=== PATIENT | female | born 1980 | race Caucasian/White ===

== ENCOUNTER 2019-12-25 22:04 | Observation (INO) | payer OTHER, SELFPAY ==
[2019-12-25 22:10] VITALS: BP 121/66; PULSE 94; RESP 18; TEMP 38.2; O2SAT 99
[2019-12-25 23:01] LABS: Basophils Percent Auto 0.3 % (0.2-1.2); Eosinophils Absolute Auto 0.1 K/mm3 (0-0.3); Eosinophils Percent Auto 0.9 % (0-4.4); Hematocrit 45.2 % (37.0-47.0); Hemoglobin 15.4 g/dL (12.0-15.0); Immature Granulocyte Absolute 0.04 K/mm3 (0.00-0.031); Immature Granulocyte Percent A 0.3 % (0-0.5); Immature Platelet Fraction Pct 6.3 % (0.9-11.2); Lymphocytes Absolute Auto 1.14 K/mm3 (0.9-3.2); Lymphocytes Percent Auto 8.2 % (18.3-44.2); Mean Corpuscular HGB Conc 34.1 g/dl (32-36); Mean Corpuscular Hemoglobin 30.4 pg (26-34); Mean Corpuscular Volume 89.3 fl (80-100); Mean Platelet Volume 10.5 fl (7.4-10.4); Monocytes Absolute Auto 0.9 K/mm3 (0.1-0.6); Monocytes Percent Auto 6.7 % (2.6-8.5); Neutrophils Absolute Auto 11.6 K/mm3 (1.3-6.7); Neutrophils Percent Auto 83.6 % (45.5-73.1); Platelet Count Result 139 k/mm3 (150-375); Red Blood Count 5.06 M/mm3 (4.2-5.4); Red Cell Distribution Width 12.1 % (11.5-14.5); White Blood Count 13.9 K/mm3 (4.5-10.0)
[2019-12-25 23:12] LABS: Anion Gap 12 mmol/L (8-16); Blood Urea Nitrogen 15 mg/dL (7-17); Calcium 9.5 mg/dL (8.4-10.2); Carbon Dioxide 26 mmol/L (22-30); Chloride 101 mmol/L (98-107); Estimated CRCL calculation 79 ml/min; Estimated Glomerular Filt Rate > 60; Glucose 98 mg/dL (65-105); Potassium 3.7 mmol/L (3.4-5.0); Sodium 139 mmol/L (137-145)
[2019-12-26] MEDS: ceFAZolin 2 GM/D5W 50 ML 2 GM/50 ML BAG IVPB (01:03)
[2019-12-26 01:39] LABS: CRP 1.8 mg/dL (<1.0)
--- NOTE | 2019-12-26 01:44 | ED.SKABFB ---
HPI - Skin/Abscess/Foreign Bdy General Chief complaint: Skin/Abscess/Foreign Body Stated complaint: infected blister Time Seen by Provider: 12/26/19 00:28 Source: patient Mode of arrival: ambulatory Limitations: no limitations History of Present Illness HPI narrative: This patient is a 39 year old female who presents for evaluation an infected blister. She reports she noticed what appeared to be poison diego to her right wrist 4 days ago. She later noticed increased swelling to a blister on his rightt wrist. Yesterday, she noticed red spots to right forearm, and throughout the day she has developed redness up the arm. She has pain to her right arm pain. She had a fever on arrival to ER. She reports nausea and she had one episode of emesis when she was squeezing her wound. She denies history of previous skin infections. Related Data Home Medications Medication Instructions Recorded Confirmed No Home Medications 12/25/19 12/25/19 Allergies Allergy/AdvReac Type Severity Reaction Status Date / Time No Known Allergies Allergy Verified 12/26/19 05:12 Review of Systems Review of Systems: All systems reviewed & are unremarkable except as noted in HPI and below PMFSH Past Medical History Medical History Patient denies medical problems Surgical History Surgical History H/O section Family History Family History (Updated 12/26/19 @ 04:57 by Madalyn James RN) Other Patient denies significant medical history Social History Social History Smoking status: Never smoker Alcohol intake: never Substance use: never Gender identity (if verbalized by the patient): Female Spiritual care concerns: No Exam Const: General: no acute distress and alert Orientation/consciousness: patient oriented x3 HENMT: Head: atraumatic Face and sinus: face symmetric Mouth: Yes Normal oral and palatal mucosa present, Yes lip normal, Yes oropharynx normal and Yes moist mucous membranes Eyes: EOM: EOMs intact bilaterally Resp: Effort & Inspection: normal respiratory effort and no retractions Auscultation: clear to auscultation bilaterally Cardio: Rate: regular rate Rhythm: regular rhythm Heart sounds: no murmurs Skin: Other: 3 cm ecchymotic blister with surround erythema with ertyhematous streaking starting volar right wrist going up to axilla, she has lymphadenopathy in her right axilla Neuro: General: patient oriented x3 and moves all extremities Extrem: General: no pedal edema Psych: Mental Status: mental status grossly normal Affect: normal affect Course Consultations Consultation #1: I spoke with Dr. Fischer about patient and management. He accepts to the medical floor. Date: 12/26/19 Time: 01:53 Vital Signs Vital signs: Vital Signs Temperature 100.8 F H 12/25/19 22:10 Pulse Rate 94 12/25/19 22:10 Respiratory Rate 18 12/25/19 22:10 Blood Pressure 121/66 12/25/19 22:10 Pulse Oximetry 99 12/25/19 22:10 Temperature 98.2 F 12/26/19 06:00 Pulse Rate 75 12/26/19 06:00 Respiratory Rate 21 H 12/26/19 06:00 Blood Pressure 101/62 12/26/19 06:00 Pulse Oximetry 100 12/26/19 06:00 MDM - Skin/Abscess/Foreign Bdy Lab Data Result diagrams: 12/25/19 22:26 12/25/19 22:26 Labs: Lab Results 12/25/19 12/25/19 12/25/19 Range/Units 22:26 22:26 22:26 WBC 13.9 H (4.5-10.0) K/mm3 RBC 5.06 (4.2-5.4) M/mm3 Hgb 15.4 H (12.0-15.0) g/dL Hct 45.2 (37.0-47.0) % MCV 89.3 (80-100) fl MCH 30.4 (26-34) pg MCHC 34.1 (32-36) g/dl RDW 12.1 (11.5-14.5) % Plt Count 139 L (150-375) k/mm3 MPV 10.5 H (7.4-10.4) fl Immature Gran % (Auto) 0.3 (0-0.5) % Neut % (Auto) 83.6 H (45.5-73.1) % Lymph % (Auto) 8.2 L (18.3-44.2) %
--- NOTE | 2019-12-26 02:27 | PM.IMHP ---
H&P: HPI History of Present Illness Date/Time: 12/26/19 02:27 Chief complaint: right arm cellulitis with lympangitis Narrative: This is a 39 year old female who is known to normally be healthy and doesn't take any home medications presented to the hospital with a complaint of an infected blister on her right wrist. She believes that she got poison diego as this started out as a rash on her right wrist that become a blister yesterday. She described it as very itchy. She started to notice redness creeping up her right forearm and she had a telemedicine appointment and was prescribed Augmentin which she took one tablet. She was told to come to the hospital if the redness worsened and yesterday evening she noticed the redness had gone all the way up her arm into her armpit. Associated symptoms include nausea and fever. She denies any chest pain, cough, sore throat, headache, abdominal pain, dysuria, hematuria, diarrhea or rectal bleeding. She denies any other open wounds. In the ER tonight the patient was found to have a fever of 100.8 F. She was started on Ancef IV and we have been asked to admit her to the hosptial for further care. Review of Systems Review of Systems: All systems reviewed & are unremarkable except as noted in HPI and below PMFSH Past Medical History Medical History Patient denies medical problems Surgical History Surgical History H/O section Family History Family History Other Patient denies significant medical history Social History Social History Smoking status: Never smoker Alcohol intake: never Substance use: never Gender identity (if verbalized by the patient): Female Spiritual care concerns: No Meds Home Medications and Allergies Home Medications Medication Instructions Recorded Confirmed Type No Home Medications 12/25/19 12/25/19 History Allergies Allergy/AdvReac Type Severity Reaction Status Date / Time No Known Allergies Allergy Verified 12/26/19 05:12 Vital Signs Vital Signs - 24 hr 12/25/19 22:10 Temperature 38.2 C H Pulse Rate 94 Respiratory Rate 18 Blood Pressure 121/66 Pulse Oximetry 99 Exam Const: General: cooperative, no acute distress, alert, awake and ill appearing acutely Nutritional Appearance: well nourished Orientation/consciousness: patient oriented x3 HENMT: Head: normal to inspection General nose exam: Normal external nose present Face and sinus: normal facial exam Mouth: Yes Normal oral and palatal mucosa present and Yes oropharynx normal Eyes: Pupils: Equal, round and reactive pupils present EOM: EOMs intact bilaterally Neck: Neck: supple and no JVD Thyroid: thyroid normal Lymphatic: lymphadenopathy (Right axilla++ ) Resp: Effort & Inspection: normal respiratory effort Auscultation: clear to auscultation bilaterally Cardio: Rate: regular rate Rhythm: regular rhythm Heart sounds: no murmurs GI: Inspection: normal to inspection Auscultation: normal bowel sounds Skin: General skin exam: erythema (Streaking erythema going up right arm to the axilla++ ) Lesions: other (open blister on right wrist++ ) Neuro: General: patient oriented x3 Cranial nerves: Yes CN's II-XII intact bilaterally and Yes Equal, round and reactive pupils present Speech: normal speech Motor exam (neuro): 5/5 motor strength present throughout Sensory Exam: normal sensation Extrem: General: normal to inspection and no edema Psych: Mental Status: mental status grossly normal Affect: normal affect H&P: Results Labs Labs: Short CBC 12/25/19 Range/Units 22:26 WBC 13.9 H (4.5-10.0) K/mm3 Hgb 15.4 H (12.0-15.0) g/dL Hct 45.2 (37.0-47.0) % Plt Count 139 L (150-375) k/mm3 [facility] 12/25/19 22:26
[2019-12-26] MEDS: HYDROcodone/acetaminophen (*CRX) 5-325 MG TABLET 1 TAB PO (02:53)
[2019-12-26 04:39] VITALS: BP 97/62; PULSE 73; RESP 18; O2SAT 100
--- NOTE | 2019-12-26 04:55 | ADMGEN ---
This patient, Tameka Valladares, was admitted to 2 Medical Room 261-01. Patient/family oriented to hospital policies and general routines including ID bracelet, bed and alarms, visiting hours, pain management, procedures, bathroom and other care routines, personal items, smoking policy, room service/diet, and visiting hours. Information on how to activate the Rapid Response Team has been discussed. Patient/Family are encouraged to report perceived risks to care and to ask questions if they do not understand what they are told or what they should do.
[2019-12-26 06:00] VITALS: BP 101/62; PULSE 75; RESP 21; TEMP 36.8; O2SAT 100; BMI 25.4
--- NOTE | 2019-12-26 12:41 | PM.IMPN ---
Progress Note: A&P Assessment and Plan (1) Cellulitis: Qualifiers: Laterality: right Site of cellulitis: extremity Site of cellulitis of extremity: upper extremity Qualified Code(s): L03.113 - Cellulitis of right upper limb Code(s): L03.90 - Cellulitis, unspecified Status: Acute Assessment and Plan: Admit for observation, Continue IV Ancef. blood / urine/ wound cultures are pending. IV hydration, antiemetics and pain control as needed. last fever was yesterday evening at 38.2, she does not feel like her redness has improved at this time. will keep her another night, pending culture results and improvement of redness and itching. Ordered calamine and bacitracin to be applied Started her on Claritin and Benadryl. (2) Sepsis: Qualifiers: Sepsis acute organ dysfunction status: without acute organ dysfunction Sepsis type: sepsis due to unspecified organism Qualified Code(s): A41.9 - Sepsis, unspecified organism Code(s): A41.9 - Sepsis, unspecified organism Status: Acute Assessment and Plan: Source of sepsis appears to be cellulitis. Continue IV antibiotics and IV fluids. Encourage oral hydration too Monitor vital signs and urine output. intake/output Monitor acid-base status. (3) Leukocytosis: Qualifiers: Leukocytosis type: unspecified Qualified Code(s): D72.829 - Elevated white blood cell count, unspecified Code(s): D72.829 - Elevated white blood cell count, unspecified Status: Acute Assessment and Plan: secondary to cellulitis. WBC increased at 13.9 last night, repeating in morning fever improving from 38.2 to 36.8 C Monitor CBCs and fevers. (4) Thrombocytopenia: Code(s): D69.6 - Thrombocytopenia, unspecified Status: Acute Assessment and Plan: likely reactive. in 2018 plts 167 Plts 139 last kier drier platelets and fevers. Additional Plan Date of service was 12/26/2019 at 02:15 hrs. Subjective Date/time seen: 12/26/19 12:41 Patient continues to have pain and itching to her right inner wrist wound, currently no drainage from the site. She continues to have red streaking upper inner arm to her elbow, and complains of a enlarged lymph node on her right armpit. Her blood / urine/ wound cultures are pending. Her last fever was yesterday evening at 38.2, she does not feel like her redness has improved at this time. We will keep her another night, pending culture results and improvement of redness and itching. Ordered calamine and bacitracin to be applied today. Started her on Claritin and Benadryl. Encouraged nursing staff to provide and encourage patient to increase her oral hydration. Continue her IV Ancef at this time. Review of Systems Review of Systems: All systems reviewed & are unremarkable except as noted in HPI and below Constitutional: Constitutional: Denies chills, Denies excessive sweating, Reports fever(s), Denies headache(s), Denies increased appetite, Denies snoring and Denies weight gain Eyes: Eyes: Reports as per HPI, Denies exophthalmos, Denies diplopia, Denies floaters and Denies loss of peripheral vision ENT: Denies facial pain, Denies headache(s), Denies hoarseness, Denies odynophagia and Denies tinnitus Cardiovascular: Cardiovascular: Reports as per HPI, Denies chest pain, Denies chest pain at rest, Denies chest pain with activity, Denies rapid heart rate, Denies pedal edema, Denies edema and Denies leg ulcers Respiratory: Respiratory: Reports as per HPI, Denies chest congestion, Denies cough, Denies pain on inspiration, Denies pain with cough and Denies snoring Gastrointestinal: Gastrointestinal: Reports as per HPI, Denies abdominal pain and Denies odynophagia Genitourinary: Genitourinary: Reports as per HPI Musculoskeletal: Musculoskeletal: Reports as per HPI Integumentary/Breasts: Skin/Breast: Reports as per HPI, Reports furuncle, Reports pruritus, Report
[2019-12-26] MEDS: LORATADINE 10 MG TABLET PO (13:21)
[2019-12-26] MEDS: diphenhydrAMINE HCl CAP 25 MG CAPSULE PO (13:21)
[2019-12-26 14:00] VITALS: BP 118/71; PULSE 76; RESP 17; TEMP 36.4; O2SAT 100
[2019-12-26] MEDS: BACITRACIN/POLYMYXIN B OINT 15 GM TUBE 1 APPLIC TOPICAL (16:44)
[2019-12-26] MEDS: CALAMINE LOTION 120 ML BOTTLE 1 APPLIC TOPICAL (16:44)
[2019-12-26 22:00] VITALS: BP 107/70; PULSE 80; RESP 16; TEMP 36.6; O2SAT 98
[2019-12-27 05:33] LABS: Basophils Percent Auto 0.3 % (0.2-1.2); Eosinophils Absolute Auto 0.4 K/mm3 (0-0.3); Eosinophils Percent Auto 5.8 % (0-4.4); Hematocrit 42.8 % (37.0-47.0); Hemoglobin 14.3 g/dL (12.0-15.0); Immature Granulocyte Absolute 0.02 K/mm3 (0.00-0.031); Immature Granulocyte Percent A 0.3 % (0-0.5); Lymphocytes Absolute Auto 1.92 K/mm3 (0.9-3.2); Lymphocytes Percent Auto 27.9 % (18.3-44.2); Mean Corpuscular HGB Conc 33.4 g/dl (32-36); Mean Corpuscular Volume 89.7 fl (80-100); Mean Platelet Volume 9.5 fl (7.4-10.4); Monocytes Absolute Auto 0.6 K/mm3 (0.1-0.6); Monocytes Percent Auto 9.3 % (2.6-8.5); Neutrophils Absolute Auto 3.9 K/mm3 (1.3-6.7); Neutrophils Percent Auto 56.4 % (45.5-73.1); Platelet Count Result 156 k/mm3 (150-375); Red Blood Count 4.77 M/mm3 (4.2-5.4); Red Cell Distribution Width 11.9 % (11.5-14.5); White Blood Count 6.9 K/mm3 (4.5-10.0)
[2019-12-27 05:47] LABS: Alanine Aminotransferase 22 U/L (4-35); Albumin Level 3.7 g/dL (3.5-5.1); Alkaline Phosphatase 68 U/L (38-126); Anion Gap 9 mmol/L (8-16); Aspartate Amino Transferase 25 U/L (14-36); Bilirubin,Total 0.5 mg/dL (0.2-1.3); Blood Urea Nitrogen 11 mg/dL (7-17); Calcium 8.6 mg/dL (8.4-10.2); Carbon Dioxide 25 mmol/L (22-30); Chloride 105 mmol/L (98-107); Estimated CRCL calculation 70 ml/min; Estimated Glomerular Filt Rate > 60; Glucose 90 mg/dL (65-105); Potassium 4.1 mmol/L (3.4-5.0); Sodium 139 mmol/L (137-145)
[2019-12-27 06:00] VITALS: BP 101/55; PULSE 65; RESP 16; TEMP 37.1; O2SAT 98
[2019-12-27] MEDS: LORATADINE 10 MG TABLET PO (08:07)
[2019-12-27] MEDS: BACITRACIN/POLYMYXIN B OINT 15 GM TUBE 1 APPLIC TOPICAL (08:08)
[2019-12-27] MEDS: CALAMINE LOTION 120 ML BOTTLE 1 APPLIC TOPICAL (08:08)
--- NOTE | 2019-12-27 10:08 | PM.IMPN ---
Progress Note: A&P Assessment and Plan (1) Cellulitis: Qualifiers: Site of cellulitis: extremity Site of cellulitis of extremity: upper extremity Laterality: right Qualified Code(s): L03.113 - Cellulitis of right upper limb Code(s): L03.90 - Cellulitis, unspecified Status: Acute Assessment and Plan: Patient noting improvement in her symptoms/signs. WBC WNL today. Afebrile since admission; VSS. BCx and WCx pending Continue IV Ancef. Await BCx results Likely have patient finish PO Augmentin that was prescribed as an outpatient. pain control as needed. Monitor (2) Sepsis: Qualifiers: Sepsis type: sepsis due to unspecified organism Sepsis acute organ dysfunction status: without acute organ dysfunction Qualified Code(s): A41.9 - Sepsis, unspecified organism Code(s): A41.9 - Sepsis, unspecified organism Status: Acute Assessment and Plan: Source of sepsis appears to be cellulitis. Leukocytosis and fever noted on admission. WBC WNL Continue IV antibiotics Monitor vital signs and urine output. (3) Leukocytosis: Qualifiers: Leukocytosis type: unspecified Qualified Code(s): D72.829 - Elevated white blood cell count, unspecified Code(s): D72.829 - Elevated white blood cell count, unspecified Status: Acute Assessment and Plan: secondary to cellulitis. Monitor CBCd. See above (4) Thrombocytopenia: Code(s): D69.6 - Thrombocytopenia, unspecified Status: Acute Assessment and Plan: likely reactive. WNL today. Monitor platelets. Subjective Date/time seen: 12/27/19 10:08 Interval history: Patient is a 39 yo F with no known medical conditions who is seen in follow up for right arm cellulitis with lymphangitis. Patient states she overall feels better today. Some occasional sweats but no subjective fevers since admission. Tolerating PO. She thinks the red streaking up her arm has improved. She is able to make a fist, but notes her fingers are a bit stiff still. No other complaints. Denies headaches, changes in v/h, cp/palpitations, sob/cough, n/v/d/c, abd pain, changes in BMs, dysuria, hematuria, cloudy urine, calf pain/swelling. Review of Systems Review of Systems: All systems reviewed & are unremarkable except as noted in HPI and below Exam Narrative: Exam Narrative: General: Patient resting supine in bed in no acute distress. HEENT: Normocephalic, EOMI, oral mucosa moist. Cardiovascular: Rate and rhythm are regular. No notable murmur, rub, or gallop. Respiratory: Lungs clear to auscultation all smith. Non-labored breathing. Abdomen: Soft, non-tender, non-distended, bowel sounds present. Extremities: Peripheral pulses intact. No edema b/l LE. Right wrist has quarter sized blister on anterior aspect with some erythema and slight warmth. Areas outlined with marker show little to no erythema or warmth. ROM normal in RUE and fingers Neuro: No focal neurological deficits. Speech is clear. Objective Data Vital Signs Vital Signs: Vital Signs - 24 hr 12/26/19 14:00 12/26/19 22:00 12/27/19 06:00 Temperature 97.6 F 97.8 F 98.7 F Pulse Rate 76 80 65 Respiratory Rate 17 16 16 Blood Pressure 118/71 107/70 101/55 L Pulse Oximetry 100 98 98 Intake/Output Intake/Output: Intake & Output 12/24/19 12/25/19 12/26/19 12/27/19 23:59 23:59 23:59 23:59 Intake Total 750 600 Output Total 700 Balance 50 600 Meds/Results Medications: Active Medications Generic Name Dose Route Start Last Admin Trade Name Freq PRN Reason Stop Dose Admin Hydrocodone Bitart/Acetaminophen 1 tab 12/26/19 02:46 Hydrocodone/Acetaminophen (*Crx) 7.5-325 Mg Tablet PO Q4H PRN Pain Rated 7-10 Bacitracin/Polymyxin B Sulfate 1 applic 12/26/19 1
--- NOTE | 2019-12-27 13:59 | PM.DS ---
DS: Admitting Diagnosis Admitting Diagnosis Admitting Diagnosis: right arm cellulitis with lymphangitis DS: Discharge Diagnosis Discharge Diagnosis (1) Cellulitis: Qualifiers: Laterality: right Site of cellulitis: extremity Site of cellulitis of extremity: upper extremity Qualified Code(s): L03.113 - Cellulitis of right upper limb Code(s): L03.90 - Cellulitis, unspecified Status: Acute Assessment and Plan: Patient noting improvement in her symptoms/signs. WBC WNL today. Afebrile since admission; VSS. BCx showing NGTD. WCx gram stain shows few WBCs seen without any organisms seen. Continue IV Ancef through 2:00 pm this afternoon. Discharge after afternoon dose; will have patient finish PO Augmentin that was prescribed as outpatient (she believes she has 9.5 days left) F/u with PCP once established Monitor (2) Sepsis: Qualifiers: Sepsis acute organ dysfunction status: without acute organ dysfunction Sepsis type: sepsis due to unspecified organism Qualified Code(s): A41.9 - Sepsis, unspecified organism Code(s): A41.9 - Sepsis, unspecified organism Status: Acute Assessment and Plan: Source of sepsis appears to be cellulitis. Leukocytosis and fever noted on admission. WBC WNL; afebrile since admission Continue treatment of cellulitis as above Monitor vital signs and urine output. (3) Leukocytosis: Qualifiers: Leukocytosis type: unspecified Qualified Code(s): D72.829 - Elevated white blood cell count, unspecified Code(s): D72.829 - Elevated white blood cell count, unspecified Status: Acute Assessment and Plan: secondary to cellulitis. Monitor CBCd. See above (4) Thrombocytopenia: Code(s): D69.6 - Thrombocytopenia, unspecified Status: Acute Assessment and Plan: likely reactive. WNL today. DS: Summary Hospital Course Reason for hospitalization: Right wrist cellulitis with lymphangitis Hospital Course: Patient is a 39 yo F who is known to normally be healthy and doesn't take any home medications presented to the hospital on 12/25 with a complaint of an infected blister on her right wrist. While in the ED, she was found to have temp of 100.8, leukocytosis, and evidence of right wrist redness surrounding a blister and streaking up to her right axilla and was placed on IV ancef; she technically met criteria for sepsis. Patient admitted under this setting. Please see H&P for further details. Patient was admitted to the hospitalist service for further evaluation. She continued on IV ancef throughout her stay. Blood cultures drawn in ED returned negative, preliminary. Her leukocytosis resolved and she remained afebrile throughout her stay. Clinically her cellulitis and lymphangitis had improved significantly. Once blood cultures returned with preliminary no growth, plan was for her to be discharge back home on her already prescribed Augmentin to complete the course (she believed was for 10 days). She was to follow up with her PCP once established. Patient agreeable and comfortable with plan for discharge. Patient hemodynamically stable and in improved condition for discharge on 12/26 Status at Discharge Overall status at discharge: patient is progressing back to baseline Time Spent with Patient Time attestation: Total time spent providing and/or coordinating discharge services: Time spent: Greater than 30 minutes Exam Narrative: Exam Narrative: General: Patient resting supine in bed in no acute distress. HEENT: Normocephalic, EOMI, oral mucosa moist. Cardiovascular: Rate and rhythm are regular. No notable murmur, rub, or gallop. Respiratory: Lungs clear to auscultation all smith. Non-labored breathing. Abdomen: Soft, non-tender,
[2019-12-27 14:00] VITALS: BP 101/69; PULSE 78; RESP 16; TEMP 36.3; O2SAT 98
== END 2019-12-27 16:23 | disposition home or self-care (01) ==
LOC: ANHED 12-26 02:54 → ANH2MED 12-26 04:14
PROVIDERS: Emergency Medicine; Admitting Provider Family Medicine; Emergency Provider General Practice; Visit Provider Physician Assistant
DX: A41.9 Sepsis, unspecified organism (principal); L03.113 Cellulitis of right upper limb; D72.829 Elevated white blood cell count, unspecified; D69.6 Thrombocytopenia, unspecified
CPT/HCPCS: 36415; 80048; 80053; 85025; 85055; 86140; 87040; 87070; 87086; 87147; 87186; 87205; 96365; 96366; 99285; A9270; G0378; J0690